=== PATIENT | male | born 1955 | race Two or more races ===

== ENCOUNTER 2020-02-29 19:43 | Observation (INO) | payer BC ==
[2020-02-29 20:00] LABS: Glucose,Whole Blood 112 mg/dL (75-99)
--- NOTE | 2020-02-29 20:10 | ED ---
Trauma HPI - General Stated Complaint: Ran Over By Tractor Time Seen by Provider: 02/29/20 19:43 Source: patient, family, RN notes reviewed - History of Present Illness Initial Comments: Is a 64-year-old male with a sensory benign physical history who was working as tractor when it rolled on him and he was pain under for approximately 20 minutes. He states the rear wheel of the tractor that did have a polyp has been on it roll up his right leg and up to his right pelvis. He was on soft dirt when it occurred.. He states tractor rested on his right pelvis area for about 20 minutes to her someone was able to get them out. He had no loss of consciousness complains of difficulty breathing when he was under the tractor but none now complains some lower abdominal pain right pelvis pain right thigh leg and foot pain does have some numbness to the area. He was able to be helped into a car and brought the hospital by private vehicle. His last tetanus shot was about 3 years ago. He states the pain is about 7/10 but does not want any pain and she is right now. No other modifying factors MD Complaint: other - Related Data Home Medications Medication Instructions Recorded Confirmed Multivitamin with Iron 1 tab PO DAILY 02/29/20 02/29/20 [Multivitamins with Iron] [place]-3 Fatty Acids [[place]-3] 1,000 mg PO DAILY 02/29/20 02/29/20 Allergies Allergy/AdvReac Type Severity Reaction Status Date / Time No Known Allergies Allergy Verified 02/29/20 20:48 Review of Systems ROS Statement: Those systems with pertinent positive or pertinent negative responses have been documented in the HPI. ROS Other: All systems not noted in ROS Statement are negative. General Exam - General Exam Comments Initial Comments: Pezzer well-developed well-nourished awake alert oriented 3 male [place] Coma Scale of 15 General appearance: alert, anxious, in distress Head exam: Present: atraumatic, normocephalic, normal inspection Eye exam: Present: normal appearance, PERRL, EOMI. Absent: scleral icterus, conjunctival injection, periorbital swelling ENT exam: Present: normal exam, mucous membranes moist Neck exam: Present: normal inspection, full ROM, other (Surgery bruits). Absent: tenderness, meningismus, lymphadenopathy Respiratory exam: Present: normal lung sounds bilaterally. Absent: respiratory distress, wheezes, rales, rhonchi, stridor, chest wall tenderness Cardiovascular Exam: Present: regular rate, normal rhythm, normal heart sounds. Absent: systolic murmur, diastolic murmur, rubs, gallop, clicks GI/Abdominal exam: Present: soft, tenderness, normal bowel sounds. Absent: d istended, guarding, rebound, rigid, bruit, pulsatile mass, hernia Rectal exam: Present: normal inspection exam: Present: normal inspection. Absent: scrotal swelling Extremities exam: Present: full ROM, tenderness, normal capillary refill, other (Is palpation of the right hip but there is abrasion evidence of contusion a ddition liters evidence of contusion over the lateral proximal right thigh abrasion over the anterior lateral mid leg and dorsal right foot. No sensorimotor vascular deficits are is evidence of a contusion seen to the left h). Absent: pedal edema, joint swelling, calf tenderness Back exam: Present: normal inspection, full ROM. Absent: tenderness, CVA tenderness (R), CVA tenderness (L), paraspinal tenderness, vertebral tenderness Neurological exam: Present: alert, oriented X3, CN II-XII intact, reflexes normal. Absent: motor sensory deficit Psychiatric exam: Present: normal affect, anxious Skin exam: Present: warm, dry, normal color. Absent: intact, rash Course Vital Signs 02/29/20 19:45 Temperature 98.6 F Pulse Rate 107 H Respiratory 18 Rate Blood Pressure 189/115 O2 Sat by Pulse 97 Oximetry - Reevaluation(s) Reevaluation #1: 02/29/20 20:12 Patient is P2 T and did discuss case with Dr. Delcid Reevaluation #2: 02/29/20 22:02 Reevaluation patient several occasions he did complain some numbness at times going to his legs however no evidence of any fractures or subluxations and imaging. Medical Decision Making - Medical Decision Making I did discuss case the patient's was present. Patient does have evidence of an elevation in his troponin besides the contusions and abrasions that were found on clinical exam patient remained awake alert oriented 3 with a [place] Coma Scale of 15. I did discuss case with Dr. Delcid patient be admitted with cardiology consultation. Serial troponins. Recheck of the CK. Patient did state his pain was about 5/10 he did not require or request any pain medication. His blood pressure was noting of the elevated he will be started on enalapril at this time. He currently is not on any blood pressure medications he also does admit that it has been running high recently - Lab Data Result diagrams: 02/29/20 20:16 02/29/20 20:16 Lab Results 02/29/20 02/29/20 02/29/20 Range/Units 19:58 19:59 20:01 WBC (3.8-10.6) k/uL RBC (4.30-5.90) m/uL Hgb (13.0-17.5) gm/dL Hct (39.0-53.0) % MCV (80.0-100.0) fL MCH (25.0-35.0) pg MCHC (31.0-37.0) g/dL RDW (11.5-15.5) % Plt Count (150-450) k/uL MPV Neutrophils % % Lymphocytes % % Monocytes % % Eosinophils % % Basophils % % Neutrophils # (1.3-7.7) k/uL Lymphocytes # (1.0-4.8) k/uL Monocytes # (0-1.0) k/uL Eosinophils # (0-0.7) k/uL Basophils # (0-0.2) k/uL PT (9.0-12.0) sec INR (<1.2) APTT (22.0-30.0) sec Sodium (137-145) mmol/L Potassium (3.5-5.1) mmol/L Chloride (98-107) mmol/L Carbon Dioxide (22-30) mmol/L Anion Gap mmol/L BUN (9-20) mg/dL Creatinine (0.66-1.25) mg/dL Est GFR (CKD-EPI)AfAm (>60 ml/min/1.73 sqM) Est GFR (CKD-EPI)NonAf (>60 ml/min/1.73 sqM) Glucose (74-99) mg/dL POC Glucose (mg/dL) 112 H (75-99) mg/dL POC Glu Attorney Recruiter ID Earnest, Sheila Calcium (8.4-10.2) mg/dL Total Bilirubin (0.2-1.3) mg/dL AST (17-59) U/L ALT (4-49) U/L Alkaline Phosphatase (38-126) U/L Creatine Kinase (55-170) U/L Troponin I (0.000-0.034) ng/mL Total Protein (6.3-8.2) g/dL Albumin (3.5-5.0) g/dL Serum Alcohol mg/dL Blood Type O Negative Blood Type Confirm O Negative Blood Type Recheck Bld Type Recheck Status Antibody Screen NEGATIVE Spec Expiration Date 02/29/20 02/29/20 02/29/20 Range/Units 20:16 20:16 20:16 WBC 13.0 H (3.8-10.6) k/uL RBC 5.16 (4.30-5.90) m/uL Hgb 15.6 (13.0-17.5) gm/dL Hct 45.3 (39.0-53.0) % MCV 87.8 (80.0-100.0) fL MCH 30.2 (25.0-35.0) pg MCHC 34.4 (31.0-37.0) g/dL RDW 12.8 (11.5-15.5) % Plt Count 201 (150-450) k/uL MPV 7.3 Neutrophils % 84 % Lymphocytes % 9 % Monocytes % 4 % Eosinophils % 2 % Basophils % 0 % Neutrophils # 10.8 H (1.3-7.7) k/uL Lymphocytes # 1.1 (1.0-4.8) k/uL Monocytes # 0.6 (0-1.0) k/uL Eosinophils # 0.3 (0-0.7) k/uL Basophils # 0.1 (0-0.2) k/uL PT 10.0 (9.0-12.0) sec INR 0.9 (<1.2) APTT 20.7 L (22.0-30.0) sec Sodium 138 (137-145) mmol/L Potassium 4.2 (3.5-5.1) mmol/L Chloride 101 (98-107) mmol/L Carbon Dioxide 31 H (22-30) mmol/L Anion Gap 6 mmol/L BUN 24 H (9-20) mg/dL Creatinine 1.12 (0.66-1.25) mg/dL Est GFR (CKD-EPI)AfAm 80 (>60 ml/min/1.73 sqM) Est GFR (CKD-EPI)NonAf 69 (>60 ml/min/1.73 sqM) Glucose 116 H (74-99) mg/dL POC Glucose (mg/dL) (75-99) mg/dL POC Glu Attorney Recruiter ID Calcium 9.5 (8.4-10.2) mg/dL Total Bilirubin 0.4 (0.2-1.3) mg/dL AST 30 (17-59) U/L ALT 24 (4-49) U/L Alkaline Phosphatase 103 (38-126) U/L Creatine Kinase 118 (55-170) U/L Troponin I (0.000-0.034) ng/mL Total Protein 6.8 (6.3-8.2) g/dL Albumin 4.1 (3.5-5.0) g/dL Serum Alcohol <10 mg/dL Blood Type Blood Type Confirm Blood Type Recheck Bld Type Recheck Status Antibody Screen Spec Expiration Date 02/29/20 02/29/20 Range/Units 20:16 20:16 WBC (3.8-10.6) k/uL RBC (4.30-5.90) m/uL Hgb (13.0-17.5) gm/dL Hct (39.0-53.0) % MCV (80.0-100.0) fL MCH (25.0-35.0) pg MCHC (31.0-37.0) g/dL RDW (11.5-15.5) % Plt Count (150-450) k/uL MPV Neutrophils % % Lymphocytes % % Monocytes % % Eosinophils % % Basophils % % Neutrophils # (1.3-7.7) k/uL Lymphocytes # (1.0-4.8) k/uL Monocytes # (0-1.0) k/uL Eosinophils # (0-0.7) k/uL Basophils # (0-0.2) k/uL PT (9.0-12.0) sec INR (<1.2) APTT (22.0-30.0) sec Sodium (137-145) mmol/L Potassium (3.5-5.1) mmol/L Chloride (98-107) mmol/L Carbon Dioxide (22-30) mmol/L Anion Gap mmol/L BUN (9-20) mg/dL Creatinine (0.66-1.25) mg/dL Est GFR (CKD-EPI)AfAm (>60 ml/min/1.73 sqM) Est GFR (CKD-EPI)NonAf (>60 ml/min/1.73 sqM) Glucose (74-99) mg/dL POC Glucose (mg/dL) (75-99) mg/dL POC Glu Attorney Recruiter ID Calcium (8.4-10.2) mg/dL Total Bilirubin (0.2-1.3) mg/dL AST (17-59) U/L ALT (4-49) U/L Alkaline Phosphatase (38-126) U/L Creatine Kinase (55-170) U/L Troponin I 0.061 H* (0.000-0.034) ng/mL Total Protein (6.3-8.2) g/dL Albumin (3.5-5.0) g/dL Serum Alcohol mg/dL Blood Type Blood Type Confirm Blood Type Recheck No Previous Record Bld Type Recheck Status CABO Indicated Antibody Screen Spec Expiration Date 03/03/20202315 - EKG Data -: EKG Interpreted by Me EKG shows normal: sinus rhythm EKG Comments: Sinus tachycardia rate 102. Interval 184 QRS duration 92 QT since QTC 382/[address]-T wave changes - Radiology Data Radiology results: report reviewed (I did review the imaging and reports patient does have evidence of a right renal cyst as well as some diverticular changes colon. No evidence of acute processes seen. On x-ray there is some evidence of osteoarthritis a small effusion to the left knee.), image reviewed Critical Care Time Critical Care Time: Yes Total Critical Care Time: 31 Critical Care Time: Echocardiogram includes initial presentation with history physical labs x-rays multiple reevaluation the patient. Discussion with the patient and family regarding findings discussion with the main physician admission orders neck mentation the above patient was activated P2 T trauma with activation. Again I did discuss the case initially with Dr. james upon the patient's arrival. Disposition Clinical Impression: Elevated troponin, Multiple abrasions, Multiple contusions, Hypertension Disposition: ADMITTED IP TO THIS HOSP Condition: Fair Referrals: Amol Will MD [Primary Care Provider] - 1-2 days
[2020-02-29 20:20] LABS: Basophils # (A) 0.1 k/uL (0-0.2); Basophils % (A) 0 %; Eosinophils # (A) 0.3 k/uL (0-0.7); Eosinophils % (A) 2 %; HCT 45.3 % (39.0-53.0); HGB 15.6 gm/dL (13.0-17.5); Lymphocytes # (A) 1.1 k/uL (1.0-4.8); Lymphocytes % (A) 9 %; MCH 30.2 pg (25.0-35.0); MCHC 34.4 g/dL (31.0-37.0); MCV 87.8 fL (80.0-100.0); Mean Platelet Volume 7.3; Monocytes # (A) 0.6 k/uL (0-1.0); Monocytes % (A) 4 %; Neutrophils # (A) 10.8 k/uL (1.3-7.7); Neutrophils % (A) 84 %; Platelet Count 201 k/uL (150-450); RBC 5.16 m/uL (4.30-5.90); RDW 12.8 % (11.5-15.5)
[2020-02-29 20:31] LABS: ALT 24 U/L (4-49); AST 30 U/L (17-59); African American GFR (CKD) 80 (>60 ml/min/1.73 sqM); Albumin 4.1 g/dL (3.5-5.0); Alcohol <10 mg/dL; Alkaline Phosphatase 103 U/L (38-126); Anion Gap 6 mmol/L; Blood Urea Nitrogen 24 mg/dL (9-20); Calcium 9.5 mg/dL (8.4-10.2); Carbon Dioxide 31 mmol/L (22-30); Chloride 101 mmol/L (98-107); Creatine Kinase 118 U/L (55-170); Glucose 116 mg/dL (74-99); Non-African American GFR(CKD) 69 (>60 ml/min/1.73 sqM); Potassium 4.2 mmol/L (3.5-5.1); Sodium 138 mmol/L (137-145); Total Bilirubin 0.4 mg/dL (0.2-1.3); Total Protein 6.8 g/dL (6.3-8.2)
--- NOTE | 2020-02-29 20:34 | XR ---
EXAMINATION TYPE: XR chest 1V portable DATE OF EXAM: 02/29/2020 COMPARISON: NONE HISTORY: Trauma. Rollover by a tractor. TECHNIQUE: Single view FINDINGS: There is no heart failure nor confluent pneumonic infiltrate. Costophrenic angles are clear . There are no hilar masses. There are chest leads. IMPRESSION: No active cardiopulmonary disease. Limited exam.
[2020-02-29 20:35] LABS: INR 0.9 (<1.2)
[2020-02-29 20:36] LABS: Partial Thromboplastin Time 20.7 sec (22.0-30.0)
--- NOTE | 2020-02-29 20:45 | XR ---
EXAMINATION TYPE: XR pelvis AP view DATE OF EXAM: 02/29/2020 COMPARISON: NONE HISTORY: Trauma. Pain. TECHNIQUE: 2 views FINDINGS: Pelvic ring appears intact. Proximal femurs and hip joints are intact. Sacroiliac joints ap pear intact. IMPRESSION: Negative exam. No fracture.
--- NOTE | 2020-02-29 20:47 | XR ---
EXAMINATION TYPE: XR foot complete RT DATE OF EXAM: 02/29/2020 COMPARISON: NONE HISTORY: Foot pain TECHNIQUE: 3 views FINDINGS: Metatarsals are intact. I see no fracture nor dislocation. There are plantar and Achilles c alcaneal spurs. IMPRESSION: Calcaneal spurring. No fracture seen.
--- NOTE | 2020-02-29 21:03 | CT ---
EXAMINATION TYPE: CT ChestAbdPelvis w con DATE OF EXAM: 02/29/2020 COMPARISON: None HISTORY: Ran over by tractor, bilateral hip pain. CT DLP: 2892.4 mGycm Automated exposure control for dose reduction was used. CONTRAST: Performed with IV Contrast, patient injected with 100ml mL of Isovue 370. Images were obtained from the thoracic inlet to the floor the pelvis with IV contrast. Lungs are krista r of consolidation. There is no pleural effusion or pneumothorax. Heart size is normal. There is no p ericardial effusion. There is no mediastinal adenopathy. There are no hilar masses. Thoracic aorta is intact. There is small hiatal hernia. Stomach is intact. Liver spleen pancreas gallbladder appear intact. The bile ducts are not dilated. There is no adrenal mass. Kidneys have normal size. There is bilobed 4 cm cyst lateral right kidney. There is no hydronephrosis. There is no evidence of a solid renal mass. Delayed images show normal re nal excretion. There is no retroperitoneal adenopathy. Bladder distends smoothly. There is bilateral inguinal hernias that contain fat. There is no free fluid in the pelvis. There is no mesenteric edema. There is no ascites or free air. There is no bowel obstruction. Appendix is posterior and medial and appears normal. There are a few s igmoid diverticula. There is no evidence of diverticulitis. Thoracic and lumbar vertebra have normal alignment. There is no compression fracture. Sternum is inta ct. The bony pelvis appears intact. Proximal femurs and hip joints are intact. I see no evidence of a rib fracture. The shoulder joints appear intact. IMPRESSION: Negative exam. No evidence of traumatic injury of the chest abdomen pelvis.
--- NOTE | 2020-02-29 21:05 | XR ---
EXAMINATION TYPE: XR tibia fibula RT DATE OF EXAM: 02/29/2020 COMPARISON: NONE HISTORY: Leg pain TECHNIQUE: 4 views FINDINGS: The tibia and fibula appear intact. I see no fracture nor dislocation. There are small calc aneal spurs. IMPRESSION: No acute abnormality of the right tibia and fibula. Calcaneal spurring.
--- NOTE | 2020-02-29 21:11 | XR ---
EXAMINATION TYPE: XR femur RT DATE OF EXAM: 02/29/2020 COMPARISON: NONE HISTORY: Trauma. Pain. TECHNIQUE: 4 views FINDINGS: The hip joint and knee joint appear intact. I see no fracture nor dislocation. There is min imal spurring of the femoral and tibial condyles. IMPRESSION: Mild spurring at the knee joint. No fracture seen.
--- NOTE | 2020-02-29 21:19 | XR ---
EXAMINATION TYPE: XR tibia fibula LT DATE OF EXAM: 02/29/2020 COMPARISON: NONE HISTORY: Leg pain TECHNIQUE: 3 views FINDINGS: Tibia and fibula appear intact. Ankle mortise is anatomic. Knee joint is intact. There is s ome spurring of the femoral and tibial condyles. IMPRESSION: No fracture seen. Mild osteoarthritis of the knee joint.
--- NOTE | 2020-02-29 21:20 | XR ---
EXAMINATION TYPE: XR femur LT DATE OF EXAM: 02/29/2020 COMPARISON: NONE HISTORY: Leg pain. Injury. TECHNIQUE: 4 views FINDINGS: There is contrast in the urinary bladder which appears intact. Acetabulum is intact. Left f emur shows no fracture. There is knee joint effusion. There is mild spurring on the superior patella. IMPRESSION: There is evidence of mild knee joint effusion. No fracture seen.
[2020-02-29] MEDS ORDERED: ENALAPRILAT 1.25 MG/ML 1 ML VIAL IVP STA (22:00)
[2020-02-29] MEDS ORDERED: NALOXONE 0.4 MG/ML 1 ML VIAL IV PRN (22:07)
[2020-02-29] MEDS ORDERED: ONDANSETRON 4 MG/2 ML VIAL IVP PRN (22:07)
[2020-02-29] MEDS ORDERED: lisinopriL 10 MG TAB PO STA (22:12)
[2020-02-29 22:17] LABS: Appearance,Urine Clear (Clear); Bilirubin,Urine Negative (Negative); Blood,Urine Negative (Negative); Color,Urine Yellow; Glucose,Urine (UA) Negative (Negative); Ketones,Urine Negative (Negative); Leukocyte Esterase,Urine Negative (Negative); Nitrite,Urine Negative (Negative); PH, Urine 6.5 (5.0-8.0); Protein,Urine Negative (Negative); Specific Gravity,Urine 1.035 (1.001-1.035); Urobilinogen,Urine <2.0 mg/dL (<2.0)
[2020-02-29 22:28] LABS: Amphetamine Screen,Urine Not Detected (NotDetected); Barbiturate Screen,Urine Not Detected (NotDetected); Benzodiazepines Screen,Urine Not Detected (NotDetected); Cocaine Screen,Urine Not Detected (NotDetected); Methadone Screen, Urine Not Detected (NotDetected); Opiate Screen,Urine Not Detected (NotDetected); Oxycodone Screen, Urine Not Detected (NotDetected); Phencyclidine Screen,Urine Not Detected (NotDetected); Tricyclic Antidepressant,Urine Not Detected (NotDetected); Urn Cannabinoid Scrn Not Detected (NotDetected)
[2020-02-29] MEDS: SODIUM CHLORIDE 0.9% 1,000 ML IV SCH (22:55)
[2020-02-29] MEDS ORDERED: SODIUM CHLORIDE 0.9% 500 ML 500 ML IV ONE (23:03)
[2020-03-01 04:14] LABS: Basophils % (A) 0 %; Eosinophils # (A) 0.1 k/uL (0-0.7); Eosinophils % (A) 1 %; HCT 42.4 % (39.0-53.0); HGB 14.9 gm/dL (13.0-17.5); Lymphocytes # (A) 1.1 k/uL (1.0-4.8); Lymphocytes % (A) 11 %; MCH 31.2 pg (25.0-35.0); MCHC 35.2 g/dL (31.0-37.0); MCV 88.6 fL (80.0-100.0); Mean Platelet Volume 7.2; Monocytes # (A) 0.7 k/uL (0-1.0); Monocytes % (A) 7 %; Neutrophils # (A) 8.1 k/uL (1.3-7.7); Neutrophils % (A) 80 %; Platelet Count 185 k/uL (150-450); RBC 4.78 m/uL (4.30-5.90); RDW 12.8 % (11.5-15.5); WBC 10.1 k/uL (3.8-10.6)
[2020-03-01 04:23] LABS: ALT 22 U/L (4-49); AST 33 U/L (17-59); African American GFR (CKD) >90 (>60 ml/min/1.73 sqM); Albumin 3.6 g/dL (3.5-5.0); Alkaline Phosphatase 75 U/L (38-126); Anion Gap 3 mmol/L; Blood Urea Nitrogen 21 mg/dL (9-20); Calcium 8.8 mg/dL (8.4-10.2); Carbon Dioxide 28 mmol/L (22-30); Chloride 105 mmol/L (98-107); Creatine Kinase 374 U/L (55-170); Glucose 108 mg/dL (74-99); Lipase 67 U/L (23-300); Non-African American GFR(CKD) 88 (>60 ml/min/1.73 sqM); Sodium 136 mmol/L (137-145); Total Bilirubin 0.6 mg/dL (0.2-1.3); Total Protein 6.2 g/dL (6.3-8.2)
[2020-03-01] MEDS: HEPARIN SODIUM,PORCINE 5,000 UNIT/ML 1 ML VIAL SQ SCH ×4 (04:51→23:49)
[2020-03-01] MEDS: SODIUM CHLORIDE 0.9% 1,000 ML IV SCH ×2 (08:51→23:50)
--- NOTE | 2020-03-01 08:58 | P.GSHP ---
History of Present Illness H&P Date: 03/01/20 Chief Complaint: Crush injury 64-year-old male involved in a accident with his tractor yesterday evening. He was evaluated early this morning. Patient apparently had the tractor rolled onto his left leg right thigh and right lower abdomen. Apparently the wheel of the tractor was on the pelvic region for approximately 20 minutes. Patient says he was having some difficulty taking deep breaths when it was in place. Came to the ER with pain 7 out of 10. Most of his pain involved the bilateral thigh region and right pelvic region. Pain this morning is 2-3 out of 10. Still in the same locations. Patient has had an extensive workup. CT chest abdomen and pelvis showed no acute abnormalities. X-rays both femurs, both tib-fib's, right foot, chest, pelvis fairly unremarkable with the exception of mild left knee effusion. Patient complains of mild numbing sensation bilateral lower extremities. Specifically right thigh right calf left foot. Patient has good mobility he states. There is no pain with joint movement. He is able to feel touch but says it feels as if there is a piece of plastic overlying his skin when he is being examined. Denies back pain. Never had any discomfort in his back during the event or after. No loss of consciousness. Troponins and CPK levels elevated. - Review of Systems Comment: The patient denies any acute changes in vision or hearing, no dysphagia or odynophagia, no chest pain or shortness of breath, no dysuria or hematuria, no headache, no runny nose, no rectal bleeding or melena, no unexplained weight loss Past Medical History Past Medical History: Hypertension History of Any Multi-Drug Resistant Organisms: None Reported Past Surgical History: Tonsillectomy Past Anesthesia/Blood Transfusion Reactions: No Reported Reaction Past Psychological History: No Psychological Hx Reported Smoking Status: Never smoker Past Alcohol Use History: Rare Past Drug Use History: None Reported - Past Family History Father Family Medical History: No Reported History Mother Family Medical History: Hypertension Medications and Allergies Home Medications Medication Instructions Recorded Confirmed Type Multivitamin with Iron 1 tab PO DAILY 02/29/20 02/29/20 History [Multivitamins with Iron] [place]-3 Fatty Acids [[place]-3] 1,000 mg PO DAILY 02/29/20 02/29/20 History Allergies Allergy/AdvReac Type Severity Reaction Status Date / Time No Known Allergies Allergy Verified 02/29/20 20:48 Surgical - Exam Vital Signs Temp Pulse Resp BP Pulse Ox 98.6 F 107 H 18 189/115 97 02/29/20 19:45 02/29/20 19:45 02/29/20 19:45 02/29/20 19:45 02/29/20 19:45 Physical exam: General: Well-developed, well-nourished elderly male in no distress HEENT: Normocephalic, sclerae nonicteric Abdomen: Nontender, nondistended, no abdominal wall abrasions Extremities: Mild swelling appreciated right thigh, abrasion right lateral thigh and right pelvic region, motor fully intact both lower extremities. Paresthesias appreciated right thigh left foot but patient able to feel touch without complete numbness, bilateral lower extremity calf compartments feel soft without tenderness or swelling Neuro: Alert and oriented Results - Labs 03/01/20 03:39 03/01/20 03:39 Abnormal Lab Results - Last 24 Hours (Table) 02/29/20 02/29/20 02/29/20 Range/Units 19:58 20:16 20:16 WBC 13.0 H (3.8-10.6) k/uL Neutrophils # 10.8 H (1.3-7.7) k/uL APTT 20.7 L (22.0-30.0) sec Sodium (137-145) mmol/L Carbon Dioxide (22-30) mmol/L BUN (9-20) mg/dL Glucose (74-99) mg/dL POC Glucose (mg/dL) 112 H (75-99) mg/dL Creatine Kinase (55-170) U/L Troponin I (0.000-0.034) ng/mL Total Protein (6.3-8.2) g/dL 02/29/20 02/29/20 02/29/20 Range/Units 20:16 20:16 23:59 WBC (3.8-10.6) k/uL Neutrophils # (1.3-7.7) k/uL APTT (22.0-30.0) sec Sodium (137-145) mmol/L Carbon Dioxide 31 H (22-30) mmol/L BUN 24 H (9-20) mg/dL Glucose 116 H (74-99) mg/dL POC Glucose (mg/dL) (75-99) mg/dL Creatine Kinase 256 H (55-170) U/L Troponin I 0.061 H* (0.000-0.034) ng/mL Total Protein (6.3-8.2) g/dL 02/29/20 03/01/20 03/01/20 Range/Units 23:59 03:39 03:39 WBC (3.8-10.6) k/uL Neutrophils # (1.3-7.7) k/uL APTT (22.0-30.0) sec Sodium 136 L (137-145) mmol/L Carbon Dioxide (22-30) mmol/L BUN 21 H (9-20) mg/dL Glucose 108 H (74-99) mg/dL POC Glucose (mg/dL) (75-99) mg/dL Creatine Kinase 374 H (55-170) U/L Troponin I 0.220 H* 0.239 H* (0.000-0.034) ng/mL Total Protein 6.2 L (6.3-8.2) g/dL 03/01/20 Range/Units 03:39 WBC (3.8-10.6) k/uL Neutrophils # 8.1 H (1.3-7.7) k/uL APTT (22.0-30.0) sec Sodium (137-145) mmol/L Carbon Dioxide (22-30) mmol/L BUN (9-20) mg/dL Glucose (74-99) mg/dL POC Glucose (mg/dL) (75-99) mg/dL Creatine Kinase (55-170) U/L Troponin I (0.000-0.034) ng/mL Total Protein (6.3-8.2) g/dL Diabetes panel 02/29/20 03/01/20 Range/Units 20:16 03:39 Sodium 138 136 L (137-145) mmol/L Potassium 4.2 4.0 (3.5-5.1) mmol/L Chloride 101 105 (98-107) mmol/L Carbon Dioxide 31 H 28 (22-30) mmol/L BUN 24 H 21 H (9-20) mg/dL Creatinine 1.12 0.92 (0.66-1.25) mg/dL Glucose 116 H 108 H (74-99) mg/dL Calcium 9.5 8.8 (8.4-10.2) mg/dL AST 30 33 (17-59) U/L ALT 24 22 (4-49) U/L Alkaline Phosphatase 103 75 (38-126) U/L Total Protein 6.8 6.2 L (6.3-8.2) g/dL Albumin 4.1 3.6 (3.5-5.0) g/dL Calcium panel 02/29/20 03/01/20 Range/Units 20:16 03:39 Calcium 9.5 8.8 (8.4-10.2) mg/dL Albumin 4.1 3.6 (3.5-5.0) g/dL Pituitary panel 02/29/20 03/01/20 Range/Units 20:16 03:39 Sodium 138 136 L (137-145) mmol/L Potassium 4.2 4.0 (3.5-5.1) mmol/L Chloride 101 105 (98-107) mmol/L Carbon Dioxide 31 H 28 (22-30) mmol/L BUN 24 H 21 H (9-20) mg/dL Creatinine 1.12 0.92 (0.66-1.25) mg/dL Glucose 116 H 108 H (74-99) mg/dL Calcium 9.5 8.8 (8.4-10.2) mg/dL Adrenal panel 02/29/20 03/01/20 Range/Units 20:16 03:39 Sodium 138 136 L (137-145) mmol/L Potassium 4.2 4.0 (3.5-5.1) mmol/L Chloride 101 105 (98-107) mmol/L Carbon Dioxide 31 H 28 (22-30) mmol/L BUN 24 H 21 H (9-20) mg/dL Creatinine 1.12 0.92 (0.66-1.25) mg/dL Glucose 116 H 108 H (74-99) mg/dL Calcium 9.5 8.8 (8.4-10.2) mg/dL Total Bilirubin 0.4 0.6 (0.2-1.3) mg/dL AST 30 33 (17-59) U/L ALT 24 22 (4-49) U/L Alkaline Phosphatase 103 75 (38-126) U/L Total Protein 6.8 6.2 L (6.3-8.2) g/dL Albumin 4.1 3.6 (3.5-5.0) g/dL Assessment and Plan (1) Crush injury Narrative/Plan: 64-year-old male involved in a accident with his tractor where both lower extremities were transiently crushed by the vehicle. Patient with elevated CPK and troponin levels. Await full cardiac evaluation. Patient has improving pain scores. Paresthesias he states have been present since the initial injury. Compartments on exam do not feel tight and therefore I believe this is more of a shear fact compartment syndrome. We'll consult orthopedics for the left knee effusion and to evaluate for the unlikely possibility of developing compartment syndrome. Current Visit: Yes Status: Acute Code(s): T14.8XXA - OTHER INJURY OF UNSPECIFIED BODY REGION, INITIAL ENCOUNTER SNOMED Code(s): 815261697
[2020-03-01] MEDS ORDERED: PANTOPRAZOLE 40 MG/10 ML VIAL IV SCH (09:00)
--- NOTE | 2020-03-01 10:29 | ECHOF ---
Referral Reason:Elevated troponin MEASUREMENTS -------- HEIGHT: 177.8 cm WEIGHT: 127.9 kg BP: 182/108 RVIDd: 3.6 cm (< 3.3) IVSd: 1.5 cm (0.6 - 1.1) LVIDd: 4.7 cm (3.9 - 5.3) LVPWd: 1.6 cm (0.6 - 1.1) IVSs: 2.2 cm LVIDs: 3.1 cm LVPWs: 2.1 cm LA Diam: 3.5 cm (2.7 - 3.8) Ao Diam: 3.8 cm (2.0 - 3.7) AV Cusp: 2.0 cm (1.5 - 2.6) MV EXCURSION: 11.800 mm (> 18.000) MV EF SLOPE: 23 mm/s (70 - 150) EPSS: 1.4 cm MV E Trent: 0.79 m/s MV DecT: 308 ms MV A Trent: 1.24 m/s MV E/A Ratio: 0.64 FINDINGS -------- Sinus rhythm. This was a technically adequate study. The left ventricular size is normal. There is moderate concentric left ventricular hypertrophy. O verall left ventricular systolic function is normal with, an EF between 55 - 60 %. The right ventricle is mildly enlarged. The left atrium is normal in size. The right atrial size is normal. Interatrial and interventricular septum intact. The aortic valve is trileaflet, and appears structurally normal. No aortic stenosis or regurgitation. Mild mitral annular calcification present. There is trace to mild mitral regurgitation. The tricuspid valve appears structurally normal. No regurgitation noted The pulmonic valve was not well visualized. The aortic root is dilated measuring 3.8cm. Normal inferior vena cava with normal inspiratory collapse consistent with estimated right atrial pre ssure of 5 mmHg. There is no pericardial effusion. CONCLUSIONS -------- 1. There is moderate concentric left ventricular hypertrophy. 2. Overall left ventricular systolic function is normal with, an EF between 55 - 60 %. 3. The right ventricle is mildly enlarged. 4. The aortic valve is trileaflet, and appears structurally normal. No aortic stenosis or regurgitati on. 5. There is trace to mild mitral regurgitation. 6. The aortic root is dilated measuring 3.8cm. 7. There is no pericardial effusion. OVERSIZE LOAD PILOT ESCORT: Liss Herzog RDCS
[2020-03-01] MEDS: amLODIPine 5 MG TAB PO SCH (11:09)
--- NOTE | 2020-03-01 11:18 | XR ---
EXAMINATION TYPE: XR knee complete bilateral DATE OF EXAM: 03/01/2020 CLINICAL HISTORY: Pain right knee. Numbness left knee. TECHNIQUE: Three views of the bilateral knees are obtained. COMPARISON: None. FINDINGS: There is no acute fracture/dislocation evident in either knee. Left knee shows moderate narrowing and moderate medial spurring medial tibial femoral compartment. Th ere is moderate to severe narrowing patellofemoral compartment. Overlying soft tissue is unremarkable . Mild to moderate narrowing and mild spurring patellofemoral compartment right knee. Spurring from the anterior superior patella at the distal quadriceps tendon attachment. Right knee shows moderate to s evere narrowing medial tibiofemoral compartment greater than opposite left knee with [id number] medial spurring. Overlying soft tissue is unremarkable. IMPRESSION: As above.
--- NOTE | 2020-03-01 12:50 | P.CNOR ---
History of Present Illness - [facility] Consult date: 03/01/20 History of present illness: This patient is a 64- year old male that presented to [facility] emergency department via private car yesterday after complaints of an injury at home. Patient states his tractor rolled over his right lower extremity and rested on top of his pelvis and abdomen for about 20 minutes. He states he was having trouble breathing and attempted to call his who did not answer. His nephew was able to get his 's attention, who was able to get the patient out from under the tractor. Patient was able to ambulate to the car. Patient underwent an extensive work-up in the emergency department, including x-rays of the pelvis, bilateral femurs, bilateral tibia and fibula, and right foot, as well as a chest, abdomen, pelvis. No fractures were identified. Patient was complaining of numbness along the lateral right thigh, and left foot. Patient's troponins were also elevated in the ER, patient was admitted under the care of Dr. Delcid. Dr Delcid consulted orthopedics this morning for possible compartment syndrome. The patient is seen and examined bedside this morning. Patient is complaining of mild soreness of the bilateral hips. Although he states he is comfortable laying in bed, his pain feels slightly better compared to last night. He has been up walking around his room and to the bathroom with a walker without issue. Patient is not having any issues moving the knees, ankles, or toes. He denies additional complaints at this time, his pain is currently well-controlled. He denies back pain. Vital signs currently stable. Past Medical History Past Medical History: Hypertension History of Any Multi-Drug Resistant Organisms: None Reported Past Surgical History: Tonsillectomy Past Anesthesia/Blood Transfusion Reactions: No Reported Reaction Past Psychological History: No Psychological Hx Reported Smoking Status: Never smoker Past Alcohol Use History: Rare Past Drug Use History: None Reported - Past Family History Father Family Medical History: No Reported History Mother Family Medical History: Hypertension Medications and Allergies Home Medications Medication Instructions Recorded Confirmed Type Multivitamin with Iron 1 tab PO DAILY 02/29/20 02/29/20 History [Multivitamins with Iron] Aline-3 Fatty Acids [Aline-3] 1,000 mg PO DAILY 02/29/20 02/29/20 History Allergies Allergy/AdvReac Type Severity Reaction Status Date / Time No Known Allergies Allergy Verified 02/29/20 20:48 Physical Examination On examination, the patient is sitting up in bed in no apparent distress. He is alert and orientated x3. Patient appears very comfortable in bed, he is in good spirits and does not appear in any pain. His head appears normocephalic and atraumatic. On inspection of his bilateral upper extremities, there are no obvious deformities or signs of trauma. On inspection of the left lower extremity, there are no obvious deformities or signs of trauma. The compartments of the thigh and lower leg are very soft and compressible. No pain with PROM of the hip, knee, ankle, toes. Patient is able to perform a straight leg raise without issue. Patient has good strength and ROM of the ankle and toes. Subjective decrease of sensation to palpation of the dorsal right foot, although patient does feel light touch. Otherwise motor and sensory function intact. Dorsalis pedis pulse +2, the left lower extremity is warm and well perfused. On inspection of the right lower extremity, there are no obvious deformities. There are superficial abrasions to the lateral thigh and ankle. The compartments of the thigh and lower leg are very soft and compressible. No pain with PROM of the hip, knee, ankle, toes. Patient is able to perform a straight leg raise without issue. Patient has good strength and ROM of the ankle and toes. Subjective decrease of sensation to palpation of the lateral thigh, although patient does feel light touch. Otherwise motor and sensory function intact. Dorsalis pedis pulse +2, the right lower extremity is warm and well perfused. On inspection of the low back, no obvious deformities or signs of trauma. No step-offs. No pain with palpation of the lumbar spine. Results Imaging reviewed. Bilateral knee x-rays 03/01/20: No acute fractures. Bilateral femnur x-rays 02/29/20: No acute fractures. Bilateral tibia/fibula x-rays 02/29/20: No acute fractures. Pelvis x-rays 02/29/20: No acute fractures. Chest, abdomen, pelvis CT 02/29/20: Per report, negative exam. No fractures of the hip, pelvis, thoracic or lumbar vertebra per report. - Labs Labs: Abnormal Lab Results - Last 24 Hours (Table) 02/29/20 02/29/20 02/29/20 Range/Units 19:58 20:16 20:16 WBC 13.0 H (3.8-10.6) k/uL Neutrophils # 10.8 H (1.3-7.7) k/uL APTT 20.7 L (22.0-30.0) sec Sodium (137-145) mmol/L Carbon Dioxide (22-30) mmol/L BUN (9-20) mg/dL Glucose (74-99) mg/dL POC Glucose (mg/dL) 112 H (75-99) mg/dL Creatine Kinase (55-170) U/L Troponin I (0.000-0.034) ng/mL Total Protein (6.3-8.2) g/dL 02/29/20 02/29/20 02/29/20 Range/Units 20:16 20:16 23:59 WBC (3.8-10.6) k/uL Neutrophils # (1.3-7.7) k/uL APTT (22.0-30.0) sec Sodium (137-145) mmol/L Carbon Dioxide 31 H (22-30) mmol/L BUN 24 H (9-20) mg/dL Glucose 116 H (74-99) mg/dL POC Glucose (mg/dL) (75-99) mg/dL Creatine Kinase 256 H (55-170) U/L Troponin I 0.061 H* (0.000-0.034) ng/mL Total Protein (6.3-8.2) g/dL 02/29/20 03/01/20 03/01/20 Range/Units 23:59 03:39 03:39 WBC (3.8-10.6) k/uL Neutrophils # (1.3-7.7) k/uL APTT (22.0-30.0) sec Sodium 136 L (137-145) mmol/L Carbon Dioxide (22-30) mmol/L BUN 21 H (9-20) mg/dL Glucose 108 H (74-99) mg/dL POC Glucose (mg/dL) (75-99) mg/dL Creatine Kinase 374 H (55-170) U/L Troponin I 0.220 H* 0.239 H* (0.000-0.034) ng/mL Total Protein 6.2 L (6.3-8.2) g/dL 03/01/20 03/01/20 Range/Units 03:39 11:02 WBC (3.8-10.6) k/uL Neutrophils # 8.1 H (1.3-7.7) k/uL APTT (22.0-30.0) sec Sodium (137-145) mmol/L Carbon Dioxide (22-30) mmol/L BUN (9-20) mg/dL Glucose (74-99) mg/dL POC Glucose (mg/dL) (75-99) mg/dL Creatine Kinase 506 H (55-170) U/L Troponin I (0.000-0.034) ng/mL Total Protein (6.3-8.2) g/dL H & H 02/29/20 03/01/20 Range/Units 20:16 03:39 Hgb 15.6 14.9 (13.0-17.5) gm/dL Hct 45.3 42.4 (39.0-53.0) % Coagulation 02/29/20 Range/Units 20:16 INR 0.9 (<1.2) Result Diagrams: 03/01/20 03:39 03/01/20 03:39 Assessment and Plan Assessment: Bilateral hip pain following crush injury 02/29/20. No acute fractures identified. Numbness of the left lateral thigh and right dorsal foot. No evidence of compartment syndrome at this time. Plan: - The clinical and imaging findings were discussed with the patient. The patient was discussed in detail with Dr. Zamorano. The patient's lower leg compartments are soft and compressible at this time. He is also ambulating around his room with a walker with minimal issue. He also appears comfortable lying in bed. We have low suspicion for compartment syndrome at this time. Recommended observation of his numbness at this time. - Recommended observation of the patient and we will re-evaluate the patient tomorrow morning to assess for any changes. - He may ambulate with a walker as tolerated. - Medical management per admitting team. - We will re-assess patient in the AM. Please contact with any questions or co ncerns. Patient discussed with Dr. Zamorano.
--- NOTE | 2020-03-01 13:13 | P.CRDCN ---
History of Present Illness Consult date: 03/01/20 History of present illness: CHIEF COMPLAINT: Abnormal troponin HISTORY OF PRESENT ILLNESS: This is a 64-year-old male with a past medical history significant for hypertension. 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 We have been asked to see the patient in consultation for elevated troponins. Patient states he was with his grandson yesterday at attempting to get his tractor started. Patient states he was standing in front of the tractor when it started rolling and knocked him down. He states the tractor then stalled leaving him pinned underneath. He states the wheels of the tractor were pinned near his hip and his leg. He states he was pinned underneath the tractor for approximately 20 minutes. He reports pain in both of his lower extremities. He also reports numbness to his legs. He denies any chest pain or pressure. Denies shortness of breath. Denies dizziness or lightheadedness. DIAGNOSTICS: EKG reveals sinus tachycardia. Heart rate 102. Chest xray no active cardiopulmonary disease Laboratory data: WBC 13.0. Hemoglobin 15.6. Platelet count 201. Sodium 138. Potassium 4.2. BUN 24. Creatinine 1.12. Troponin 0.061. 0.220. 0.239. Creatinine Kinase 118 on admission. Most recent CK 506. Current home cardiac medications include none REVIEW OF SYSTEMS: At the time of my exam: CONSTITUTIONAL: Denies fever or chills. HEENT: Denies blurred vision, vision changes, or eye pain. Denies hemoptysis CARDIOVASCULAR: Denies chest pain, orthopnea, PND or palpitations RESPIRATORY: No shortness of breath. GASTROINTESTINAL: Denies abdominal pain. Denies nausea or vomiting. HEMATOLOGIC: Denies bleeding disorders. GENITOURINARY: Denies any blood in urine. SKIN: Denies pruitis. Denies rash. PHYSICAL EXAM: VITAL SIGNS: Reviewed. GENERAL: Well-developed in no acute distress. HEENT: Head is normocephalic. Pupils are equal, round. Sclerae anicteric. Mucous membranes of the mouth are moist. Neck supple. No JVD or thyromegaly LUNGS: Respirations even and unlabored. Lungs essentially clear to auscultation bilaterally. HEART: Regular rate and rhythm. S1 and S2 heard. ABDOMEN: Soft. Nondistended. Nontender. EXTREMITIES: No clubbing or cyanosis. Peripheral pulses intact. No lower extremity edema NEUROLOGIC: Awake and alert. Oriented x 3. ASSESSMENT: Crush injury, patient pinned underneath a tractor Bilateral hip pain Elevated creatinine kinase Abnormal troponins, likely secondary to crush injury, no evidence of acute coronary syndrome Hypertension, uncontrolled PLAN: An acute coronary event has been ruled out Obtain 2-D echo to assess cardiac structure and function Patient with long history of hypertension. However he has not been prescribed any antihypertensive medications on an outpatient basis. Will begin Norvasc 5 mg daily. Continue treatment per trauma surgery and orthopedics Patient to follow up outpatient with Dr. Higgins. Patient to have outpat ient stress test performed at a later date. Nurse practitioner note has been reviewed by physician. Signing provider agrees with the documented findings, assessment, and plan of care. Past Medical History Past Medical History: Hypertension History of Any Multi-Drug Resistant Organisms: None Reported Past Surgical History: Tonsillectomy Past Anesthesia/Blood Transfusion Reactions: No Reported Reaction Past Psychological History: No Psychological Hx Reported Smoking Status: Never smoker Past Alcohol Use History: Rare Past Drug Use History: None Reported - Past Family History Father Family Medical History: No Reported History Mother Family Medical History: Hypertension Medications and Allergies Home Medications Medication Instructions Recorded Confirmed Type Multivitamin with Iron 1 tab PO DAILY 02/29/20 02/29/20 History [Multivitamins with Iron] Cobb-3 Fatty Acids [Cobb-3] 1,000 mg PO DAILY 02/29/20 02/29/20 History Allergies Allergy/AdvReac Type Severity Reaction Status Date / Time No Known Allergies Allergy Verified 02/29/20 20:48 Physical Exam Vitals: Vital Signs Temp Pulse Pulse Resp BP BP Pulse Ox 03/01/20 08:25 98 F 90 18 169/99 96 03/01/20 04:00 98.1 F 86 18 182/108 95 03/01/20 02:00 102 H 16 03/01/20 00:12 98.0 F 102 H 16 171/90 95 03/01/20 00:10 98.0 F 102 H 18 171/90 95 02/29/20 19:45 98.6 F 107 H 18 189/115 97 Intake and Output 02/29/20 03/01/20 03/01/20 22:59 06:59 14:59 Intake Total 120 Output Total 480 900 Balance -480 -900 120 Intake: Oral 120 Output: Urine 480 900 Other: Voiding Method Toilet Urinal # Voids 1 1 2 Weight 128.367 kg 128 kg Results 03/01/20 03:39 03/01/20 03:39 Cardiac Enzymes 02/29/20 02/29/20 02/29/20 Range/Units 20:16 20:16 23:59 AST 30 (17-59) U/L Troponin I 0.061 H* 0.220 H* (0.000-0.034) ng/mL 03/01/20 03/01/20 Range/Units 03:39 03:39 AST 33 (17-59) U/L Troponin I 0.239 H* (0.000-0.034) ng/mL Coagulation 02/29/20 Range/Units 20:16 PT 10.0 (9.0-12.0) sec APTT 20.7 L (22.0-30.0) sec CBC 02/29/20 03/01/20 Range/Units 20:16 03:39 WBC 13.0 H 10.1 (3.8-10.6) k/uL RBC 5.16 4.78 (4.30-5.90) m/uL Hgb 15.6 14.9 (13.0-17.5) gm/dL Hct 45.3 42.4 (39.0-53.0) % Plt Count 201 185 (150-450) k/uL Comprehensive Metabolic Panel 02/29/20 03/01/20 Range/Units 20:16 03:39 Sodium 138 136 L (137-145) mmol/L Potassium 4.2 4.0 (3.5-5.1) mmol/L Chloride 101 105 (98-107) mmol/L Carbon Dioxide 31 H 28 (22-30) mmol/L BUN 24 H 21 H (9-20) mg/dL Creatinine 1.12 0.92 (0.66-1.25) mg/dL Glucose 116 H 108 H (74-99) mg/dL Calcium 9.5 8.8 (8.4-10.2) mg/dL AST 30 33 (17-59) U/L ALT 24 22 (4-49) U/L Alkaline Phosphatase 103 75 (38-126) U/L Total Protein 6.8 6.2 L (6.3-8.2) g/dL Albumin 4.1 3.6 (3.5-5.0) g/dL Current Medications Generic Name Dose Route Start Last Admin Trade Name Suad PRN Reason Stop Dose Admin Acetaminophen 650 mg 02/29/20 22:07 Acetaminophen Tab 325 Mg Tab PO Q6HR PRN Mild Pain or Fever > 100.5 Amlodipine Besylate 5 mg 03/01/20 10:30 03/01/20 11:09 Amlodipine 5 Mg Tab PO 5 mg DAILY RUBY Administration Heparin Sodium (Porcine) 5,000 unit 03/01/20 00:00 03/01/20 08:50 Heparin Sodium,Porcine 5,000 Unit/Ml 1 Ml Vial SQ 5,000 unit Q8HR RUBY Administration Sodium Chloride 1,000 mls @ 80 mls/hr 02/29/20 22:15 03/01/20 08:51 Saline 0.9% IV 80 mls/hr .[id number] RUBY Administration Naloxone HCl 0.2 mg 02/29/20 22:07 Naloxone 0.4 Mg/Ml 1 Ml Vial IV Q2M PRN Opioid Reversal Ondansetron HCl 4 mg 02/29/20 22:07 Ondansetron 4 Mg/2 Ml Vial IVP Q8HR PRN Nausea And Vomiting Pantoprazole Sodium 40 mg 03/01/20 09:00 03/01/20 08:50 Pantoprazole 40 Mg/10 Ml Vial IV 40 mg DAILY RUBY Administration Intake and Output 02/29/20 03/01/20 03/01/20 22:59 06:59 14:59 Intake Total 120 Output Total 480 900 Balance -480 -900 120 Intake: Oral 120 Output: Urine 480 900 Other: Voiding Method Toilet Urinal # Voids 1 1 2 Weight 128.367 kg 128 kg 03/01/20 03:39 03/01/20 03:39
[2020-03-01] MEDS: ACETAMINOPHEN TAB 325 MG TAB PO PRN (20:45)
[2020-03-02] MEDS: ACETAMINOPHEN TAB 325 MG TAB PO PRN (04:23)
[2020-03-02] MEDS: HEPARIN SODIUM,PORCINE 5,000 UNIT/ML 1 ML VIAL SQ SCH (08:41)
[2020-03-02] MEDS: amLODIPine 5 MG TAB PO SCH (08:41)
[2020-03-02 08:59] VITALS: RESP 16; TEMP 97.9
[2020-03-02 08:59] LABS: Basophils # (A) 0.1 k/uL (0-0.2); Basophils % (A) 1 %; Eosinophils # (A) 0.3 k/uL (0-0.7); Eosinophils % (A) 4 %; HCT 42.6 % (39.0-53.0); HGB 14.4 gm/dL (13.0-17.5); Lymphocytes # (A) 1.1 k/uL (1.0-4.8); Lymphocytes % (A) 14 %; MCH 30.6 pg (25.0-35.0); MCHC 33.9 g/dL (31.0-37.0); MCV 90.4 fL (80.0-100.0); Mean Platelet Volume 7.6; Monocytes # (A) 0.5 k/uL (0-1.0); Monocytes % (A) 7 %; Neutrophils # (A) 5.7 k/uL (1.3-7.7); Neutrophils % (A) 73 %; Platelet Count 160 k/uL (150-450); RBC 4.71 m/uL (4.30-5.90); RDW 12.8 % (11.5-15.5); WBC 7.7 k/uL (3.8-10.6)
[2020-03-02] MEDS ORDERED: PANTOPRAZOLE 40 MG TABLET PO SCH (09:00)
[2020-03-02 09:08] LABS: ALT 24 U/L (4-49); AST 37 U/L (17-59); African American GFR (CKD) >90 (>60 ml/min/1.73 sqM); Albumin 3.4 g/dL (3.5-5.0); Alkaline Phosphatase 51 U/L (38-126); Anion Gap 2 mmol/L; Blood Urea Nitrogen 17 mg/dL (9-20); Calcium 8.8 mg/dL (8.4-10.2); Carbon Dioxide 32 mmol/L (22-30); Chloride 106 mmol/L (98-107); Creatine Kinase 540 U/L (55-170); Glucose 93 mg/dL (74-99); Non-African American GFR(CKD) 78 (>60 ml/min/1.73 sqM); Potassium 4.3 mmol/L (3.5-5.1); Sodium 140 mmol/L (137-145); Total Bilirubin 0.8 mg/dL (0.2-1.3); Total Protein 5.9 g/dL (6.3-8.2)
--- NOTE | 2020-03-02 10:10 | P.PN ---
Subjective Progress Note Date: 03/02/20 Principal diagnosis: Status post crush injury right leg and pelvis. This patient is a 64- year old male that presented to [facility] emergency department via private car yesterday after complaints of an injury at home. Patient states his tractor rolled over his right lower extremity and rested on top of his pelvis and abdomen for about 20 minutes. He states he was having trouble breathing and attempted to call his who did not answer. His nephew was able to get his 's attention, who was able to get the patient out from under the tractor. Patient was able to ambulate to the car. Patient underwent an extensive work-up in the emergency department, including x-rays of the pelvis, bilateral femurs, bilateral tibia and fibula, and right foot, as well as a chest, abdomen, pelvis. No fractures were identified. Patient was complaining of numbness along the lateral right thigh, and left foot. Patient's troponins were also elevated in the ER, patient was admitted under the care of Dr. Delcid. Dr Delcid consulted orthopedics this morning for possible compartment syndrome. The patient is seen and examined bedside this morning. Patient is complaining of mild soreness of the bilateral hips. Although he states he is comfortable laying in bed, his pain feels slightly better compared to last night. He has been up walking around his room and to the bathroom with a walker without issue. Patient is not having any issues moving the knees, ankles, or toes. He denies additional complaints at this time, his pain is currently well-controlled. He denies back pain. Vital signs currently stable. 03/02/2020: The patient is doing well from an orthopedic standpoint. He has no new complaints or concerns today. He states that the numbness is left leg is improving. He continues to have some numbness down the right thigh. He is able to ambulate with assistance of a walker. Vital signs are stable. Labs are stable. Objective - Vital Signs Vital signs: Vital Signs Temp 97.9 F 03/02/20 08:35 Pulse 86 03/02/20 08:35 Resp 16 03/02/20 08:35 BP 165/106 03/02/20 08:35 Pulse Ox 98 03/02/20 08:35 Intake & Output 03/01/20 03/02/20 03/02/20 18:59 06:59 18:59 Intake Total 580 80 480 Balance 580 80 480 Weight 125 kg Intake: Intake, IV Titration 80 Amount Sodium Chloride 0.9% 500 80 ml 500 ml @ 999 mls/hr IV .Q31M ONE Rx#:[id number] Oral 580 480 Other: # Voids 2 1 - Exam This is a pleasant 64-year-old male in no acute distress. He is alert and oriented 3. Exam of the pelvis and lower extremities reveals some superficial abrasions to the right lower leg. No pain with compression of the pelvis. He is able to lift his left leg off the bed independently without difficulty or pain. He is able to lift his right leg off the bed independently with mild discomfort. Right thigh compartments are swollen but soft and compressible. No hip pain with logroll. Full foot and ankle motion bilaterally. Pedal pulses are +2/4. Slight dull sensation to the third toe of the left foot. Slight dull sensation to the right thigh. - Labs CBC & Chem 7: 03/02/20 08:41 03/02/20 08:41 Labs: Abnormal Lab Results - Last 24 Hours (Table) 03/01/20 03/02/20 Range/Units 11:02 08:41 Carbon Dioxide 32 H (22-30) mmol/L Creatine Kinase 506 H 540 H (55-170) U/L Total Protein 5.9 L (6.3-8.2) g/dL Albumin 3.4 L (3.5-5.0) g/dL Assessment and Plan (1) Contusion of right thigh Current Visit: Yes Status: Acute Code(s): S70.11XA - CONTUSION OF RIGHT THIGH, INITIAL ENCOUNTER SNOMED Code(s): 29447209 (2) Crush injury Current Visit: Yes Status: Acute Code(s): T14.8XXA - OTHER INJURY OF UNSPECIFIED BODY REGION, INITIAL ENCOUNTER SNOMED Code(s): 554398171 (3) Elevated troponin Current Visit: Yes Status: Acute Code(s): R77.8 - OTHER SPECIFIED ABNORMALITIES OF PLASMA PROTEINS SNOMED Code(s): 519167086 (4) Multiple abrasions Current Visit: Yes Status: Acute Code(s): T07.XXXA - UNSPECIFIED MULTIPLE I NJURIES, INITIAL ENCOUNTER SNOMED Code(s): 734872882 (5) Multiple contusions Current Visit: Yes Status: Acute Code(s): T07.XXXA - UNSPECIFIED MULTIPLE INJURIES, INITIAL ENCOUNTER SNOMED Code(s): 587635816 Plan: The clinical findings are discussed with the patient. He may be discharged from an orthopedic standpoint. He may follow up with her office as needed after discharge. He is to call if there are any problems or questions regarding his care. It is discussed that he may continue to have some numbness to the leg over the next couple of weeks secondary to swelling.
--- NOTE | 2020-03-02 10:16 | P.DS ---
Providers Date of admission: 02/29/20 22:07 Expected date of discharge: 03/02/20 Attending physician: Ravin Delcid Consults: 02/29/20 22:09 Consult Physician Routine Consulting Provider: Apryl Bautista Consult Reason/Comments: Elevated troponin Do you want consulting provider notified?: Yes, Notify in am 03/01/20 08:58 Consult Physician Routine Consulting Provider: Magdy Zamorano Consult Reason/Comments: Left knee effusion Do you want consulting provider notified?: Yes 03/01/20 08:59 Consult Physician Routine Consulting Provider: Owen Ball Consult Reason/Comments: Medical management Do you want consulting provider notified?: Yes Primary care physician: Amol Will - Discharge Diagnosis(es) (1) Crush injury Patient admitted to the hospital as a priority 2 trauma. Patient had a tractor roll onto his bilateral lower extremities and right pelvis. Patient was admitted with elevated CPKs which have remained fairly stable. Today's value is in the 500s. Patient has had good urine output that is clear in color. He says he has minimal discomfort. He is walking with a walker because of mild pain left knee and right hip region. He has been seen by orthopedics. Complaining of some numbness in bilateral lower extremities that is thought to be the result of the crush injury. Compartment syndrome was felt to not be present. Patient declines narcotics post discharge. Will plan discharge today if cleared by cardiology and orthopedics with a walker. Patient will follow-up with orthopedics and his primary care physician post discharge. Encourage the patient to continue aggressive hydration at home and monitor his urine volume in appearance. He will contact us with any difficulties. Current Visit: Yes Status: Acute Patient Condition at Discharge: Fair Plan - Discharge Summary Discharge Rx Participant: No New Discharge Prescriptions: No Action Lucama-3 Fatty Acids [Lucama-3] 1,000 mg PO DAILY Multivitamin with Iron [Multivitamins with Iron] 1 tab PO DAILY Discharge Medication List Multivitamin with Iron [Multivitamins with Iron] 1 tab PO DAILY 02/29/20 [History] Lucama-3 Fatty Acids [Lucama-3] 1,000 mg PO DAILY 02/29/20 [History] Follow up Appointment(s)/Referral(s): Amol Will MD [Primary Care Provider] - 1-2 days
[2020-03-02] MEDS ORDERED: LISINOPRIL-HCTZ 10-12.5 MG 1 EACH TAB PO SCH (12:00)
[2020-03-02 12:55] VITALS: BP 167/107; PULSE 75
--- NOTE | 2020-03-02 13:55 | P.PN ---
Subjective Progress Note Date: 03/02/20 CHIEF COMPLAINT: Abnormal troponin HISTORY OF PRESENT ILLNESS: This is a 64-year-old male with a past medical history significant for hypertension. Patient does not follow with a loan representative. We have been asked to see the patient in consultation for elevated troponins. Patient states he was with his grandson yesterday at attempting to get his tractor started. Patient states he was standing in front of the tractor when it started rolling and knocked him down. He states the tractor then stalled leaving him pinned underneath. He states the wheels of the tractor were pinned near his hip and his leg. He states he was pinned underneath the tractor for ap proximately 20 minutes. He reports pain in both of his lower extremities. He also reports numbness to his legs. He denies any chest pain or pressure. Denies shortness of breath. Denies dizziness or lightheadedness. DIAGNOSTICS: EKG reveals sinus tachycardia. Heart rate 102. Chest xray no active cardiopulmonary disease Laboratory data: WBC 13.0. Hemoglobin 15.6. Platelet count 201. Sodium 138. Potassium 4.2. BUN 24. Creatinine 1.12. Troponin 0.061. 0.220. 0.239. Creatinine Kinase 118 on admission. Most recent CK 506. Current home cardiac medications include none 03/02: Patient denies any chest pain or shortness of breath. He is feeling well and is prepared for discharge home. Dr. Delcid has cleared him for discharge however his blood pressure is still elevated at 167/107 after amlodipine. We will add in lisinopril/hydrochlorothiazide 10/12.5 mg daily and prescriptions will be sent to his pharmacy. Echocardiogram reveals EF of 55-60% with moderate concentric left hypertrophy, trace to mild mitral regurgitation, aortic root di lated 3.8 cm. No pericardial effusion. The patient is to follow-up with Dr. Higgins. PHYSICAL EXAM: VITAL SIGNS: Reviewed. GENERAL: Well-developed in no acute distress. HEENT: Head is normocephalic. Pupils are equal, round. Sclerae anicteric. Mucous membranes of the mouth are moist. Neck supple. No JVD or thyromegaly LUNGS: Respirations even and unlabored. Lungs essentially clear to auscultation bilaterally. HEART: Regular rate and rhythm. S1 and S2 heard. ABDOMEN: Soft. Nondistended. Nontender. EXTREMITIES: No clubbing or cyanosis. Peripheral pulses intact. No lower extremity edema NEUROLOGIC: Awake and alert. Oriented x 3. ASSESSMENT: Crush injury, patient pinned underneath a tractor Bilateral hip pain Elevated creatinine kinase Abnormal troponins, likely secondary to crush injury, no evidence of acute coronary syndrome Hypertension, uncontrolled PLAN: An acute coronary event has been ruled out Continue Norvasc 5 mg daily and add lisinopril hydrochlorothiazide. Patient to follow up outpatient with Dr. Higgins. Patient to have outpatient stress test performed at a later date. Nurse practitioner note has been reviewed by physician. Signing provider agrees with the documented findings, assessment, and plan of care. Objective - Vital Signs Vital signs: Vital Signs Temp 97.9 F 03/02/20 08:35 Pulse 75 03/02/20 12:00 Resp 16 03/02/20 08:35 BP 167/107 03/02/20 12:00 Pulse Ox 98 03/02/20 08:35 Intake & Output 03/01/20 03/02/20 03/02/20 18:59 06:59 18:59 Intake Total 580 80 480 Balance 580 80 480 Weight 125 kg Intake: Intake, IV Titration 80 Amount Sodium Chloride 0.9% 500 80 ml 500 ml @ 999 mls/hr IV .Q31M ONE Rx#:[id number] Oral 580 480 Other: Voiding Method Toilet Urinal # Voids 2 1 2 - Labs CBC & Chem 7: 03/02/20 08:41 03/02/20 08:41 Labs: Abnormal Lab Results - Last 24 Hours (Table) 03/02/20 Range/Units 08:41 Carbon Dioxide 32 H (22-30) mmol/L Creatine Kinase 540 H (55-170) U/L Total Protein 5.9 L (6.3-8.2) g/dL Albumin 3.4 L (3.5-5.0) g/dL
--- NOTE | 2020-03-03 13:53 | P.CONS ---
History of Present Illness - Reason for Consult Consult date: 03/02/20 - History of Present Illness Patient was not seen by me in consultation. Was discharged Past Medical History Past Medical History: Hypertension History of Any Multi-Drug Resistant Organisms: None Reported Past Surgical History: Tonsillectomy Past Anesthesia/Blood Transfusion Reactions: No Reported Reaction Past Psychological History: No Psychological Hx Reported Smoking Status: Never smoker Past Alcohol Use History: Rare Past Drug Use History: None Reported - Past Family History Father Family Medical History: No Reported History Mother Family Medical History: Hypertension Medications and Allergies Home Medications Medication Instructions Recorded Confirmed Type Multivitamin with Iron 1 tab PO DAILY 02/29/20 02/29/20 History [Multivitamins with Iron] Poneto-3 Fatty Acids [Poneto-3] 1,000 mg PO DAILY 02/29/20 02/29/20 History Lisinopril-Hctz 10-12.5 mg 1 each PO DAILY #30 tab 03/02/20 Rx [Zestoretic 10-12.5] amLODIPine [Norvasc] 5 mg PO DAILY #30 tab 03/02/20 Rx Allergies Allergy/AdvReac Type Severity Reaction Status Date / Time No Known Allergies Allergy Verified 02/29/20 20:48 Physical Exam Vitals: Vital Signs Temp Pulse Resp BP Pulse Ox 03/02/20 08:35 97.9 F 86 16 165/106 98 03/02/20 04:00 96.9 F L 70 18 171/94 96 03/02/20 00:00 97.2 F L 80 18 176/94 96 03/01/20 20:00 96.9 F L 70 18 171/85 96 03/01/20 16:00 97 F L 83 18 155/92 98 Intake and Output 03/01/20 03/02/20 03/02/20 22:59 06:59 14:59 Intake Total 320 480 Balance 320 480 Intake: Intake, IV Titration 80 Amount Sodium Chloride 0.9% 500 80 ml 500 ml @ 999 mls/hr IV .Q31M ONE Rx#:[id number] Oral 240 480 Other: Voiding Method Toilet Urinal # Voids 1 Weight 125 kg Results CBC & Chem 7: 03/02/20 08:41 03/02/20 08:41 Labs: Abnormal Lab Results - Last 24 Hours (Table) 03/02/20 Range/Units 08:41 Carbon Dioxide 32 H (22-30) mmol/L Creatine Kinase 540 H (55-170) U/L Total Protein 5.9 L (6.3-8.2) g/dL Albumin 3.4 L (3.5-5.0) g/dL
== END 2020-03-02 14:43 | disposition home or self-care (01) ==
LOC: EC 19:43 → 3SCARD 22:07
PROVIDERS: ADMIT Surgery; ATTEND Surgery
DX: S38.1XXA Crushing injury of abdomen, lower back, and pelvis, initial encounter (principal); S87.82XA Crushing injury of left lower leg, initial encounter; S87.81XA Crushing injury of right lower leg, initial encounter; W30.89XA Contact with other specified agricultural machinery, initial encounter; S70.11XA Contusion of right thigh, initial encounter; M25.462 Effusion, left knee; R00.0 Tachycardia, unspecified; R77.8 Other specified abnormalities of plasma proteins; R20.0 Anesthesia of skin; I10 Essential (primary) hypertension; Z90.89 Acquired absence of other organs; Z82.49 Family history of ischemic heart disease and other diseases of the circulatory system; Z79.899 Other long term (current) drug therapy
CPT/HCPCS: 96361 ×2; 96372 ×2; 96375; 96374; 99291; 36415; 93005; 93306; 86900; 86901; 80053 ×3; 82550 ×3; 83690; 84484 ×2; 85025 ×3; 85610; 85730; 86850; 81003; 80306; 80320; 73562; 72170; 73552 ×2; 73590 ×2; 73630; 71045; 71260; 74177; G0378 ×3; J1644 ×2; C9113; Q9967